=== PATIENT | male | born 1980 | race Caucasian/White ===

== ENCOUNTER 2017-10-08 13:38 | Emergency (ER) | payer BC ==
[~2017-10-08] VITALS: Ht 188 cm; Wt 93.1 kg
[~2017-10-08 13:38] MED LIST: ALKA-SELTZER P1 EA15 PO
[2017-10-08 13:55] LABS: BASOPHIL (%) 0.4 % (0-1); EOSINOPHIL (%) 2.3 % (0-5); EOSINOPHIL COUNT 0.2 K/uL (0-0.3); HEMATOCRIT 43.4 % (38.0-50.0); HEMOGLOBIN 14.7 G/DL (12.5-16.6); IMMATURE GRANULOCYTE (%) 0.4 % (0.0-0.7); LYMPHOCYTE (%) 23.3 % (15-42); LYMPHOCYTE COUNT 2.5 K/uL (1.0-2.8); MCHC 33.9 G/DL (30.0-36.0); MCV 82.7 FL (86-99); MONOCYTE COUNT 0.7 K/uL (0-0.8); NEUTROPHIL (%) 66.6 % (45-76); NEUTROPHIL COUNT 7.1 K/uL (1.8-6.4); PLATELET COUNT 198 K/uL (156-360); RBC DIS.WIDTH-CV 13.7 % (11.8-14.6); RBC DIS.WIDTH-SD 41.5 % (39-53); RED BLOOD COUNT 5.25 M/uL (4.00-5.50); WHITE BLOOD COUNT 10.6 K/uL (4.1-10.2)
[2017-10-08 14:10] LABS: AMYLASE 61 IU/L (1-118); CHLORIDE 104 mEq/L (99-109); POTASSIUM 4.4 mEq/L (3.7-5.4); SODIUM 139 mEq/L (136-147)
[2017-10-08 14:12] LABS: GLUCOSE 119 mg/dL (70-99)
[2017-10-08 14:15] LABS: GFR ESTIMATE (CALCULATED) > 59 mL/min/ (58.99-99999); SERUM ETHYL ALCOHOL < 10 mg/dL
[2017-10-08 14:16] LABS: UREA NITROGEN (BUN) 23 mg/dL (9-23)
[2017-10-08 14:18] LABS: LIPASE 26 U/L (1.0-51.0)
[2017-10-08] MEDS ORDERED: POLY BACITRAC28.3 GM TP (16:33)
[2017-10-08] MEDS ORDERED: DILAUDID4 MG PO (16:34)
== END 2017-10-08 17:18 | disposition home or self-care (01) ==
LOC: TRA 13:38
PROVIDERS: Emergency Medicine
PROC: 0HQ1XZZ Repair Face Skin, External Approach (ICD-10-PCS; principal; 2017-10-08)
DX: S01.111A Laceration without foreign body of right eyelid and periocular area, initial encounter (principal); S01.81XA Laceration without foreign body of other part of head, initial encounter; W20.8XXA Other cause of strike by thrown, projected or falling object, initial encounter
CPT/HCPCS: 70450; 70486; 72125; 80048; 81003; 82150; 83690; 85025; 86850; 86900; 86901; 99281; 99285; G0480; J3010